=== PATIENT | male | born 1955 | race Caucasian/White ===

== ENCOUNTER 2020-12-09 09:43 | Emergency (ER) | payer OTHER, MEDICAID ==
[~2020-12-09] VITALS: Ht 167.6 cm; Wt 69.4 kg
[~2020-12-09 09:43] MED LIST: BENA40TA8 PO; FAMC250T2 PO; HYDR25TA4 PO; METF1000 PO
[2020-12-09 10:29] VITALS: BP_SYST 152
--- NOTE | 2020-12-09 12:25 | NUR ---
Pt walked in to ER with c/o left flank and back pain, / x2 weeks. Reports he was recently treated for shingles, rash is improved but pain has worsened. V/S stable, no acute distress noted.
--- NOTE | 2020-12-09 12:25 | NUR ---
PT TO BED 3 FOR EVALUATION. REPORT GIVEN TO IGLESIA HIRSCH WHO WILL ASSUME CARE.
--- NOTE | 2020-12-09 12:30 | NUR ---
LATOSHA Mccormick at bedside examining patient.
--- NOTE | 2020-12-09 13:06 | NUR ---
LATOSHA Mccormick at bedside examining patient.
[2020-12-09] MEDS ORDERED: OXYCODONE/ACETAMINOPHEN 5-325 TABLET PO ONE (13:30)
[2020-12-09] MEDS ORDERED: GABAPENTIN 300 MG CAPSULE PO ONE (13:30)
[2020-12-09 13:58] LABS: BILIRUBIN,URINE NEGATIVE (NEGATIVE); BLOOD, URINE NEGATIVE (NEGATIVE); CLARITY/URINE CLEAR (CLEAR); COLOR,URINE YELLOW (YELLOW); GLUCOSE,URINE 3+ (NEGATIVE); KETONES,URINE TRACE (NEGATIVE); LEUKOCYTE ESTERASE ,URINE NEGATIVE (NEGATIVE); NITRITE, URINE NEGATIVE (NEGATIVE); PH,URINE 5.5 (5.0-8.0); PROTEIN URINE NEGATIVE (NEGATIVE); UROBILINOGEN,URINE 0.2 (0.2-1.0)
[2020-12-09 14:25] LABS: BACTERIA,URINE None Seen /HPF (None Seen); RBC,URINE 0-3 /HPF (0-3); WBC,URINE 0-3 /HPF (0-3)
[2020-12-09 14:42] LABS: CALCIUM 9.4 mg/dL (8.4-11.0); CREATININE 1.02 mg/dL (0.55-1.30); POTASSIUM 4.3 mmol/L (3.5-5.1)
[2020-12-09 14:43] LABS: BASOPHILS # (AUTO) 0.1 K/uL (0.0-0.2); EOSINOPHILS # (AUTO) 0.1 K/uL (0.0-0.4); EOSINOPHILS % (AUTO) 1.3 % (0.0-4.0); HEMATOCRIT 49.4 % (36-54); HEMOGLOBIN 16.5 g/dL (14.0-18.0); LYMPHOCYTES # (AUTO) 1.8 K/uL (1.0-5.5); LYMPHOCYTES % (AUTO) 25.2 % (20.5-51.5); MEAN CORPUSCULAR HEMOGLOBIN 31 pg (27-31); MEAN CORPUSCULAR HGB CONC 33 % (32-36); MEAN CORPUSCULAR VOLUME 93 fL (79.0-98.0); MONOCYTES # (AUTO) 0.5 K/uL (0.0-1.0); MONOCYTES % (AUTO) 7.4 % (1.7-9.3); NEUTROPHILS # (AUTO) 4.5 K/uL (1.8-7.7); NEUTROPHILS % (AUTO) 65.1 % (40.0-70.0); PLATELET COUNT (AUTO) 265 K/uL (130-430); RED CELL DISTRIBUTION WIDTH 14.1 % (9.0-15.0)
[2020-12-09 14:48] LABS: ALBUMIN 4.1 g/dL (3.4-4.8); TOTAL BILIRUBIN 0.5 mg/dL (0.0-1.0)
--- NOTE | 2020-12-09 14:50 | NUR ---
PT RESTING QUIETLY IN NO DISTRESS AWAITING DISPOSITION.
[2020-12-09] MEDS ORDERED: NEU300 PO (15:08)
[2020-12-09] MEDS ORDERED: OXYC-128 PO (15:08)
[2020-12-09 15:23] VITALS: BP_SYST 152
--- NOTE | 2020-12-09 15:24 | NUR ---
Patient given written and verbal discharge instructions and verbalizes understanding. ER MD discussed with patient the results and treatment provided. Patient in stable condition. ID arm band removed. Rx of Gabapentin and Percocet given. Patient educated on pain management and to follow up with PMD. Pain Scale 0. Opportunity for questions provided and answered. Medication side effect fact sheet provided.
== END 2020-12-09 15:23 | disposition home or self-care (01) ==
LOC: SED 09:43
DX: B02.29 Other postherpetic nervous system involvement (principal); I10 Essential (primary) hypertension; E11.9 Type 2 diabetes mellitus without complications; Z79.899 Other long term (current) drug therapy
CPT/HCPCS: 36415; 80053; 81000; 83605; 83690; 85025; 87040-TC; 99283

== ENCOUNTER 2022-10-27 17:26 | Emergency (ER) | payer BC, MEDICAID ==
[~2022-10-27] VITALS: Ht 157.5 cm; Wt 63.5 kg
[~2022-10-27 17:26] MED LIST changes: -BENA40TA8 PO; +BENA40TA89 PO; +NEU300 PO; +OXYC-128 PO
[2022-10-27 17:58] VITALS: BP_SYST 142
--- NOTE | 2022-10-27 18:21 | NUR ---
Patient to ER bed 4 to gown for evaluation. Side rails up. Report given to JULIÁN PAREKH.
--- NOTE | 2022-10-27 18:37 | NUR ---
left pinky and ring finger laceration Lac tray set up bedside NAD at this time AOX4 VSS Able to make needs known Will continue to monitor
--- NOTE | 2022-10-27 18:40 | NUR ---
ER at bedside examining patient.
[2022-10-27] MEDS ORDERED: DIPHTH,PERTUSS(ACELL),TET VAC 0.5 ML VIAL (Tdap) I.M. ONE (19:30)
[2022-10-27] MEDS ORDERED: CEPH-548 PO (19:53)
[2022-10-27] MEDS ORDERED: BACITRACIN 1 GM OINT TP ONE (20:00)
--- NOTE | 2022-10-27 20:24 | NUR ---
BHAKTI MENDOZA DRESSING WOUND
[2022-10-27 20:32] VITALS: BP_SYST 142
--- NOTE | 2022-10-27 20:35 | NUR ---
Patient given written and verbal discharge instructions and verbalizes understanding. ER MD discussed with patient the results and treatment provided. Patient in stable condition. ID arm band removed. Rx of CEPHALEXIN given. Patient educated on WOUND CARE SUTURES and to follow up with PMD. Pain Scale . Opportunity for questions provided and answered. Medication side effect fact sheet provided.
== END 2022-10-27 20:32 | disposition home or self-care (01) ==
LOC: SED 17:26
DX: S61.217A Laceration without foreign body of left little finger without damage to nail, initial encounter (principal); E11.9 Type 2 diabetes mellitus without complications; I10 Essential (primary) hypertension; E78.5 Hyperlipidemia, unspecified; Z79.899 Other long term (current) drug therapy; W27.4XXA Contact with kitchen utensil, initial encounter; Y93.89 Activity, other specified; Y92.89 Other specified places as the place of occurrence of the external cause; Y99.8 Other external cause status
CPT/HCPCS: 90715; 99283